=== PATIENT | male | born 1980 | race Caucasian/White ===

== ENCOUNTER 2017-11-11 16:33 | Emergency (ER) | payer OTHER ==
[~2017-11-11] VITALS: Ht 182.9 cm; Wt 79.6 kg
[~2017-11-11 16:33] MED LIST: AMOCLA500 PO; ERYT.5TO LEFTEYE; ERYT1OIN RIGHTEYE; HYDR1TAB94 PO; IBUP800 PO; Percocet 5-3251 EACH PO; Ultram50 MG PO; Veetids 500500 MG PO
[2017-11-11] MEDS ORDERED: LIDO700A20 TOP (17:24)
[2017-11-11] MEDS ORDERED: Robaxin500 MG PO (17:24)
[2017-11-11] MEDS ORDERED: Norco 5-325 Ta1 EACH PO (17:24)
[2017-11-11] MEDS ORDERED: IBUP800 PO (17:24)
[2018-07-09] MEDS ORDERED: Voltaren100 GM TOP (07:45)
== END 2017-11-11 17:29 | disposition home or self-care (01) ==
LOC: ER 16:33
DX: G89.29 Other chronic pain (principal); M54.5 Low back pain; F17.200 Nicotine dependence, unspecified, uncomplicated
CPT/HCPCS: 96372; 99283; J1885

== ENCOUNTER 2017-11-21 21:20 | Emergency (ER) | payer OTHER ==
[~2017-11-21] VITALS: Ht 182.9 cm; Wt 79.4 kg
[~2017-11-21 21:20] MED LIST changes: +LIDO700A20 TOP; +Norco 5-325 Ta1 EACH PO; +Robaxin500 MG PO
[2017-11-21] MEDS ORDERED: CYCL10 PO (21:28)
[2018-07-09] MEDS ORDERED: Voltaren100 GM TOP (07:45)
== END 2017-11-21 21:47 | disposition home or self-care (01) ==
LOC: ER 21:20
DX: M25.512 Pain in left shoulder (principal); Z79.899 Other long term (current) drug therapy; F17.200 Nicotine dependence, unspecified, uncomplicated
CPT/HCPCS: 96372; 99283; J1885

== ENCOUNTER 2017-11-24 10:44 | Emergency (ER) | payer OTHER ==
[~2017-11-24] VITALS: Ht 182.9 cm; Wt 79.4 kg
[~2017-11-24 10:44] MED LIST changes: +CYCL10 PO
[2017-11-24 11:35] LABS: Calcium, Ionized (POC) 1.12 mmol/L (1.10-1.46); Chloride (POC) 104 mmol/L (98-108); Creatinine (POC) 0.9 mg/dL (0.8-1.3); Glucose (ISTAT POC) 109 mg/dL (70-99); Hemoglobin (POC) 8.8 g/dL (13.5-17.5); Potassium (POC) 4.1 mmol/L (3.5-5.5); Sodium (POC) 140 mmol/L (135-148); Total CO2 (POC) 25 mmol/L (21-32)
[2018-07-09] MEDS ORDERED: Voltaren100 GM TOP (07:45)
== END 2017-11-24 12:01 | disposition home or self-care (01) ==
LOC: ER 10:44
PROVIDERS: Physician Assistant
DX: R19.7 Diarrhea, unspecified (principal); F17.210 Nicotine dependence, cigarettes, uncomplicated; Z79.899 Other long term (current) drug therapy
CPT/HCPCS: 36415; 80047; 85014; 99282

== ENCOUNTER 2017-12-29 10:50 | Emergency (ER) | payer OTHER ==
[~2017-12-29] VITALS: Ht 182.9 cm; Wt 78.0 kg
[2018-07-09] MEDS ORDERED: Voltaren100 GM TOP (07:45)
== END 2017-12-29 11:12 | disposition home or self-care (01) ==
LOC: ER 10:50
DX: L08.9 Local infection of the skin and subcutaneous tissue, unspecified (principal); F17.210 Nicotine dependence, cigarettes, uncomplicated; Z79.899 Other long term (current) drug therapy
CPT/HCPCS: 99282

== ENCOUNTER 2018-01-26 22:04 | Emergency (ER) | payer OTHER ==
[~2018-01-26] VITALS: Ht 182.9 cm; Wt 78.9 kg
[2018-01-26] MEDS ORDERED: AMOCLA500 PO (22:11)
[2018-01-26] MEDS ORDERED: Cleocin HCl300 MG PO (23:34)
[2018-01-26] MEDS ORDERED: IBUP800 PO (23:34)
== END 2018-01-26 23:54 | disposition home or self-care (01) ==
LOC: ER 22:04
DX: K02.9 Dental caries, unspecified (principal); F17.210 Nicotine dependence, cigarettes, uncomplicated
CPT/HCPCS: 99283

== ENCOUNTER 2018-05-12 00:09 | Emergency (ER) | payer OTHER ==
[~2018-05-12] VITALS: Ht 182.9 cm; Wt 79.4 kg
[~2018-05-12 00:09] MED LIST changes: +Cleocin HCl300 MG PO
[2018-05-12] MEDS ORDERED: Bactrim Ds Tab1 EACH PO (03:42)
== END 2018-05-12 03:48 | disposition home or self-care (01) ==
LOC: ER 00:09
DX: L02.511 Cutaneous abscess of right hand (principal); L03.011 Cellulitis of right finger; F17.210 Nicotine dependence, cigarettes, uncomplicated
CPT/HCPCS: 73130; 99283-25